=== PATIENT | female | born 1985 | race Two or more races ===

== ENCOUNTER 2020-02-02 07:00 | Outpatient (CLI) | payer OTHER ==
[~2020-02-02] VITALS: Ht 167.6 cm; Wt 95.3 kg
[2020-02-02] MEDS ORDERED: PRENATAL 19 TA1 EACH PO (15:34)
== END 2020-02-02 12:00 | disposition home or self-care (01) ==
LOC: CLINIC 07:00 → NST 07:00 → PRENATAL 07:00 → CLINIC 12:00 → PRENATAL 12:00 → LDR 15:09 → CLINIC 02-16 07:00 → EDSTATUS 02-16 16:00
PROVIDERS: ATTEND Obstetrics & Gynecology
DX: O46.8X3 Other antepartum hemorrhage, third trimester (principal)

== ENCOUNTER → 2020-02-12 | Outpatient (CLI) | payer OTHER ==
[~2020-02-12] MED LIST: PRENATAL 19 TA1 EACH PO
== END | disposition home or self-care (01) ==
LOC: PRENATAL 13:00
DX: O35.3XX1 Maternal care for (suspected) damage to fetus from viral disease in mother, fetus 1 (principal); O26.843 Uterine size-date discrepancy, third trimester; O35.0XX1 Maternal care for (suspected) central nervous system malformation in fetus, fetus 1; O40.3XX1 Polyhydramnios, third trimester, fetus 1

== ENCOUNTER 2020-03-15 15:44 | Outpatient (CLI) | payer OTHER | END 2020-03-15 18:31 | disposition home or self-care (01) | LOC: OBS/DEL 15:44 | PROVIDERS: ATTEND Obstetrics & Gynecology | DX: O47.1 False labor at or after 37 completed weeks of gestation (principal) ==

== ENCOUNTER 2020-03-22 06:58 | Inpatient (IN) | payer OTHER ==
[~2020-03-22] VITALS: Ht 170.2 cm; Wt 102.1 kg
[2020-03-22] MEDS ORDERED: ZYRTEC10 MG PO (08:05)
== END 2020-03-24 10:55 | disposition home or self-care (01) | DRG 807 ==
LOC: LDR 06:58 → SURG-SUITE 17:53
PROVIDERS: ADMIT Obstetrics & Gynecology; ATTEND Obstetrics & Gynecology
PROC: 10E0XZZ Delivery of Products of Conception, External Approach (ICD-10-PCS; principal; 2020-03-22)
PROC: 0HQ9XZZ Repair Perineum Skin, External Approach (ICD-10-PCS; 2020-03-22)
PROC: 3E033VJ Introduction of Other Hormone into Peripheral Vein, Percutaneous Approach (ICD-10-PCS; 2020-03-22)
PROC: 4A1HXFZ Monitoring of Products of Conception, Cardiac Rhythm, External Approach (ICD-10-PCS; 2020-03-22)
DX: O71.82 Other specified trauma to perineum and vulva (principal); Z37.0 Single live birth; O69.81X0 Labor and delivery complicated by cord around neck, without compression, not applicable or unspecified; Z3A.39 39 weeks gestation of pregnancy